=== PATIENT | male | born 2000 | race Hispanic/Latino ===

== ENCOUNTER 2024-11-19 16:48 | Emergency (ER) | payer OTHER ==
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
[2024-11-19 23:14] VITALS: BP 166/89; TEMP 97.5; O2SAT 96
== END 2024-11-19 19:39 | disposition home or self-care (01) ==
LOC: ER 16:48
DX: M54.9 Dorsalgia, unspecified (principal); R07.9 Chest pain, unspecified; R10.10 Upper abdominal pain, unspecified; V49.40XA Driver injured in collision with unspecified motor vehicles in traffic accident, initial encounter
CPT/HCPCS: 99283